=== PATIENT | female | born 1970 | race African-American/Black ===

== ENCOUNTER 2016-09-16 19:11 | Emergency (ER) | payer OTHER ==
[2016-09-16 19:16] VITALS: BP 121/80; PULSE 84; TEMP 98.8; BMI 26.6
--- NOTE | 2016-09-16 19:48 | PDOC ---
History of Present Illness - General Chief Complaint: Wound Infection Stated Complaint: Allergic Reaction History Source: Patient Exam Limitations: No Limitations - History of Present Illness Initial Comments: 09/16/16 19:33 CHIEF COMPLAINT: HISTORY OF PRESENT ILLNESS: 45-year-old female, significant medical history currently on no medication patient reports a week ago she started with a red lesion to right lateral lower torso, over the next several days it started to become red, painful and warm. No significant medical history. REVIEW OF SYSTEMS: GENERAL: Afebrile, denies any weakness RESPIRATORY: No cough, wheezing, or hemoptysis. CARDIAC: No chest pain or shortness of breath MUSCULOSKELETAL: Pain to right lateral lower back pain. No point tenderness. SKIN :Erythematous painful well defined area to the right lateral lower torso. GI/: Denies any abdominal pain, no urinary difficulty, incontinence or urinary retention. NEUROLOGICAL: Denies any numbness or tingling. No neurosensory deficits to PHYSICAL EXAM: GENERAL: The patient is awake, alert, and fully oriented, in no acute distress. RESPIRATORY: Lungs clear bilaterally, no rhonchi wheezes or crackles CARDIAC: S1-S2 audible, no murmur rub or gallop MUSCULOSKELETAL: Pain to right lateral lower back, nonradiating, no tingling or sensory deficit. Less than 2 second cap refill, +4 popliteal and pedal pulses. GI/: Abdomen soft, nontender, nondistended. No rebound tenderness. No masses palpable. MUSCULOSKELETAL: No spinal point tenderness. Normal reflexive and no deficits to sensation or strength. SKIN: Warm, erythematous, well-defined painful areas to right lateral lower torso. Past History - Past Medical History Allergies/Adverse Reactions: Allergies Allergy/AdvReac Type Severity Reaction Status Date / Time No Known Allergies Allergy Verified 02/17/16 10:25 Home Medications: Ambulatory Orders Sulfamethoxazole/Trimethoprim [Bactrim DS -] 1 tab PO BID #20 tablet 09/16/16 - Surgical History Cholecystectomy: Yes - Immunization History Immunization Up to Date: Yes - Psycho/Social/Smoking Cessation Hx Anxiety: No Suicidal Ideation: No Smoking History: Never smoked Have you smoked in the past 12 months: No Number of Cigarettes Smoked Daily: 0 Cigars Per Day: 0 Hx Alcohol Use: No Drug/Substance Use Hx: No Substance Use Type: Alcohol *Physical Exam - Vital Signs Last Vital Signs Temp Pulse Resp BP Pulse Ox 98.8 F 84 18 121/80 98 09/16/16 19:15 09/16/16 19:15 09/16/16 19:15 09/16/16 19:15 09/16/16 19:15 Medical Decision Making - Medical Decision Making 09/16/16 20:05 A/P: Patient with painful, well-defined, oval, mildly indurated area to right lateral lower torso. Area with no fluctuance or defined central collection. Area is cellulitic, will start patient on Bactrim follow-up in 2 days for evaluation possible I&D I discussed the physical exam findings, ancillary test results and final diagnoses with the patient. I answered all of the patient's questions. The patient was satisfied with the care received and felt comfortable with the discharge plan and treatment plan. The patient will call to arrange follow-up and will return to the Emergency Department with any new, persistent or worsening symptoms. *DC/Admit/Observation/Transfer Diagnosis at time of Disposition: Abscess Cellulitis Qualifiers: Site of cellulitis: other site Qualified Code(s): L03.818 - Cellulitis of other sites - Discharge Dispostion Disposition: HOME Condition at time of disposition: Good Admit: No - Prescriptions Prescriptions: Sulfamethoxazole/Trimethoprim [Bactrim Ds -] 1 tab PO BID #20 tablet - Referrals Referrals: Alicja Grant MD [Primary Care Provider] - - Patient Instructions Additional Instructions: Warm soaks to area Antibiotics as ordered Please return for evaluation in 2 days if area is not improving If any increased redness swelling, drainage, or any other concerns return to ER
== END 2016-09-16 20:25 | disposition home or self-care (01) ==
LOC: JERFT 19:11 → JER 19:11 → JERFT 20:25
DX: L03.818 Cellulitis of other sites (principal)
CPT/HCPCS: 99281-25

== ENCOUNTER 2016-09-18 13:22 | Emergency (ER) | payer OTHER ==
[2016-09-18 13:31] VITALS: TEMP 98.3; BMI 31.4
--- NOTE | 2016-09-18 15:23 | PDOC ---
History of Present Illness - General History Source: Patient Exam Limitations: No Limitations - History of Present Illness Initial Comments: 09/18/16 15:59 The patient is a 45 year old female, with no significant past medical history, who presents to the emergency department with R flank wound infection. Patient was seen on 09/16/2016 for the same complaints and was discharged home with Bactrim. Patient notes the area has progressively worsened with surrounding erythema and purulent drainage. Patient presents to the ED for further evaluation. She denies chest pain, headache or dizziness. She denies fever, chills, abdominal pain, nausea,, vomit, diarrhea or constipation. She denies dysuria, frequency, urgency or hematuria. Allergies: NKA Past surgical history: None Social history: None PCP: Dr. Grant <Meghna Steele - Last Filed: 09/18/16 15:58> <Keyonna Shoemaker - Last Filed: 09/22/16 16:16> - General Chief Complaint: Wound Infection Stated Complaint: Revisit, wound infection Time Seen by Provider: 09/18/16 14:56 Past History <Meghna Steele - Last Filed: 09/18/16 15:58> - Surgical History Cholecystectomy: Yes - Immunization History Immunization Up to Date: Yes - Psycho/Social/Smoking Cessation Hx Anxiety: No Suicidal Ideation: No Smoking History: Never smoked Have you smoked in the past 12 months: No Number of Cigarettes Smoked Daily: 0 Cigars Per Day: 0 Information on smoking cessation initiated: No Hx Alcohol Use: No Drug/Substance Use Hx: No Substance Use Type: None <Keyonna Shoemaker - Last Filed: 09/22/16 16:16> - Past Medical History Allergies/Adverse Reactions: Allergies Allergy/AdvReac Type Severity Reaction Status Date / Time No Known Allergies Allergy Verified 09/18/16 13:31 Home Medications: Ambulatory Orders Sulfamethoxazole/Trimethoprim [Bactrim DS -] 1 tab PO BID #20 tablet 09/16/16 Cephalexin Monohydrate [Keflex -] 500 mg PO Q6H #40 capsule 09/18/16 Review of Systems - Review of Systems Able to Perform ROS?: Yes Comments:: 09/18/16 15:59 GENERAL/CONSTITUTIONAL: No fever or chills. No weakness. HEAD, EYES, EARS, NOSE AND THROAT: No change in vision. No ear pain or discharge. No sore throat. GASTROINTESTINAL: No nausea, vomiting, diarrhea or constipation. GENITOURINARY: No dysuria, frequency, or change in urination. CARDIOVASCULAR: No chest pain or shortness of breath. RESPIRATORY: No cough, wheezing, or hemoptysis. MUSCULOSKELETAL: No joint or muscle swelling or pain. No neck or back pain. SKIN: + R flank abscess. No rash NEUROLOGIC: No headache, vertigo, loss of consciousness, or change in strength/ sensation. ENDOCRINE: No increased thirst. No abnormal weight change. HEMATOLOGIC/LYMPHATIC: No anemia, easy bleeding, or history of blood clots. ALLERGIC/IMMUNOLOGIC: No hives or skin allergy. <CedricMeghna - Last Filed: 09/18/16 15:58> *Physical Exam - Vital Signs Last Vital Signs Temp Pulse Resp BP Pulse Ox 98.3 F 77 18 118/59 99 09/18/16 13:29 09/18/16 13:29 09/18/16 13:29 09/18/16 13:29 09/18/16 13:29 <Meghna Steele - Last Filed: 09/18/16 15:58> - Vital Signs Last Vital Signs Temp Pulse Resp BP Pulse Ox 98.3 F 77 18 118/59 99 09/18/16 13:29 09/18/16 13:29 09/18/16 13:29 09/18/16 13:29 09/18/16 13:29 - Physical Exam Comments: GENERAL: Awake, alert, and fully oriented, in no acute distress HEAD: No signs of trauma EYES: PERRLA, EOMI, sclera anicteric, conjunctiva clear ENT: Auricles normal inspection, hearing grossly normal, nares patent, oropharynx clear without exudates. Moist mucosa NECK: Normal ROM, supple, no lymphadenopathy, JVD, or masses LUNGS: Breath sounds equal, clear to auscultation bilaterally. No wheezes, and no crackles HEART: Regular rate and rhythm, normal S1 and S2, no murmurs, rubs or gallops ABDOMEN: Soft, nontender, normoactive bowel sounds. No guarding, no rebound. No masses EXTREMITIES: Normal range of motion, no edema. No clubbing or cyanosis. No cords, erythema, or tenderness NEUROLOGICAL: Cranial nerves II through XII grossly intact. Normal speech, normal gait SKIN: Warm, Dry, normal turgor, no rashes. R side with ~5cm diameter erythematous, indurated lesion with fluctuant raised area in the center. <Keyonna Shoemaker - Last Filed: 09/22/16 16:16> Procedures - Incision and Drainage I&D Site: Right: Abdomen Anesthesia: 1% Lidocaine Volume(ml): 2 Blade Size: 11 Attempts: 1 Complications: none Dressing: Yes Progress: Area was prepped with alcohol prior to anesthetizing with lidocaine. The most fluctuant portion was incised with #11 blade, at which time it expressed moderate amount of purulent material. Loculations were broken and bently pressed to express remaining material. Patient tolerated well. Sterile dressing placed. Wound culture obtained and sent. <Keyonna Shoemaker - Last Filed: 09/22/16 16:16> *DC/Admit/Observation/Transfer - Attestations Scribe Attestion: 09/18/16 15:59 Documentation prepared by Meghna Steele, acting as medical billing and coding specialist for Keyonna Shoemaker MD <Meghna Steele - Last Filed: 09/18/16 15:58> - Discharge Dispostion Admit: No <Keyonna Shoemaker - Last Filed: 09/22/16 16:16> Diagnosis at time of Disposition: Abscess, Cellulitis - Discharge Dispostion Disposition: HOME Condition at time of disposition: Stable - Prescriptions Prescriptions: Cephalexin Monohydrate [Keflex -] 500 mg PO Q6H #40 capsule - Referrals Referrals: Alicja Grant MD [Primary Care Provider] - - Patient Instructions Printed Discharge Instructions: DI for Incision and Drainage of a Skin Abscess Additional Instructions: WARM SALT WATER SOAKS TWICE A DAY FOR 4-5 DAYS.
[2016-09-18 16:16] VITALS: BP 121/69; PULSE 88
== END 2016-09-18 16:17 | disposition home or self-care (01) ==
LOC: JER 13:22
DX: L02.211 Cutaneous abscess of abdominal wall (principal); L03.311 Cellulitis of abdominal wall
CPT/HCPCS: 87070; 87076; 87077; 87205; 99281-25

== ENCOUNTER 2017-09-10 11:31 | Emergency (ER) | payer SELFPAY ==
[2017-09-10 11:44] VITALS: BP 108/79; PULSE 72; TEMP 98.3; BMI 32.3
[2017-09-10] MEDS ORDERED: METOCLOPRAMIDE HCL INJECTION 10 MG/2 ML VIAL IVPB ONE (12:00)
[2017-09-10] MEDS ORDERED: SODIUM CHLORIDE 1,000 ML IV STA (12:01)
[2017-09-10] MEDS ORDERED: KETOROLAC TROMETHAMINE 15 MG/ML VIAL IVPUSH ONE (12:16)
[2017-09-10] MEDS ORDERED: METOCLOPRAMIDE HCL INJECTION 10 MG/2 ML VIAL ONE (12:20)
[2017-09-10] MEDS ORDERED: KETOROLAC TROMETHAMINE 15 MG/ML VIAL ONE (12:20)
--- NOTE | 2017-09-10 13:05 | PDOC ---
History of Present Illness - General Chief Complaint: Headache Stated Complaint: MIGRAINE HEADACHE Time Seen by Provider: 09/10/17 11:45 History Source: Patient Exam Limitations: No Limitations - History of Present Illness Initial Comments: 09/10/17 12:59 46 yr female with migraine headache for 4 days no relieved with OTC advil. Pt has history of migraines about 6 times a year. Pt states this is typical migraine with photophobia, no nausea , neg fever or neck pain. Past History - Past Medical History Allergies/Adverse Reactions: Allergies Allergy/AdvReac Type Severity Reaction Status Date / Time No Known Allergies Allergy Verified 09/10/17 11:40 Home Medications: Ambulatory Orders Naproxen [Naprosyn -] 500 mg PO BID PRN #14 tablet 09/10/17 COPD: No Other medical history: DENIES. - Surgical History Cholecystectomy: Yes - Immunization History Immunization Up to Date: Yes - Suicide/Smoking/Psychosocial Hx Smoking History: Never smoked Have you smoked in the past 12 months: No Number of Cigarettes Smoked Daily: 0 Cigars Per Day: 0 Hx Alcohol Use: No Drug/Substance Use Hx: No Substance Use Type: None Neuro Specific PMHX - Complaint Specific PMHX Glaucoma: No Herniated Disk: No Laminectomy: No Migraine: Yes Review of Systems - Review of Systems Able to Perform ROS?: Yes Is the patient limited Libyan proficient: No Constitutional: No: Symptoms Reported HEENTM: No: Symptoms Reported Respiratory: No: Symptoms reported Cardiac (ROS): No: Symptoms Reported ABD/GI: No: Symptoms Reported : No: Symptoms Reported Musculoskeletal: No: Symptoms Reported Integumentary: No: Symptoms Reported Neurological: Yes: Symptoms reported, Headache *Physical Exam - Vital Signs Last Vital Signs Temp Pulse Resp BP Pulse Ox 98.3 F 72 19 108/79 99 09/10/17 11:40 09/10/17 11:40 09/10/17 11:40 09/10/17 11:40 09/10/17 11:40 - Physical Exam General Appearance: Yes: Nourished, Appropriately Dressed HEENT: positive: EOMI, YOEL, TMs Normal, Pharynx Normal Neck: positive: Supple Respiratory/Chest: positive: Lungs Clear, Normal Breath Sounds Cardiovascular: positive: Regular Rhythm, Regular Rate Extremity: positive: Normal Capillary Refill, Normal Inspection Integumentary: positive: Normal Color, Dry, Warm Neurologic: 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 negative: Confused ED Treatment Course - ADDITIONAL ORDERS Additional order review: Laboratory Results 09/10/17 11:44 Urine HCG, Qual Negative - Medications Given in the ED: ED Medications Discontinued Medications Generic Name Dose Route Start Last Admin Trade Name Sukhdeep PRN Reason Stop Dose Admin Diphenhydramine HCl 25 mg 09/10/17 12:00 09/10/17 12:32 Benadryl Injection - IVPB 09/10/17 12:01 25 mg ONCE ONE Administration Ketorolac Tromethamine 15 mg 09/10/17 12:16 09/10/17 12:32 Toradol Injection - IVPUSH 09/10/17 12:17 15 mg ONCE ONE Administration Medical Decision Making - Medical Decision Making 09/10/17 13:02 cc: migraine will give IV benadryl, reglan, toradol, IVF and re-eval neg 09/10/17 14:22 pt feels much better headache has resolved pt is ambulatory steady gait understands the dc plan all questions asked and answered *DC/Admit/Observation/Transfer Diagnosis at time of Disposition: Migraine Qualifiers: Migraine type: unspecified Status migrainosus presence: with status migrainosus Intractability: not intractable Qualified Code(s): G43.901 - Migraine, unspecified, not intractable, with status migrainosus - Discharge Dispostion Disposition: HOME Condition at time of disposition: Improved - Prescriptions Prescriptions: Naproxen [Naprosyn -] 500 mg PO BID PRN #14 tablet PRN Reason: Headache - Referrals Referrals: Alicja Grant MD [Primary Care Provider] - Juliano Feliz MD [Staff Physician] - - Patient Instructions Printed Discharge Instructions: DI for Migraine Additional Instructions: drink at least 2 liters of water a day take naprosyn as directed for migraine follow with the neurologist for follow up avoid bright light loud places, avoid reading or texting return if any worsening symptoms - Post Discharge Activity
== END 2017-09-10 13:49 | disposition home or self-care (01) ==
LOC: JERFT 11:31
PROC: 3E0337Z Introduction of Electrolytic and Water Balance Substance into Peripheral Vein, Percutaneous Approach (ICD-10-PCS; principal; 2017-09-10)
PROC: 3E033GC Introduction of Other Therapeutic Substance into Peripheral Vein, Percutaneous Approach (ICD-10-PCS; 2017-09-10)
PROC: 3E033GC Introduction of Other Therapeutic Substance into Peripheral Vein, Percutaneous Approach (ICD-10-PCS; 2017-09-10)
PROC: 3E0333Z Introduction of Anti-inflammatory into Peripheral Vein, Percutaneous Approach (ICD-10-PCS; 2017-09-10)
DX: G43.901 Migraine, unspecified, not intractable, with status migrainosus (principal)
CPT/HCPCS: 84703; 99281-25; J7030

== ENCOUNTER 2017-11-25 10:23 | Emergency (ER) | payer BC ==
[2017-11-25 10:34] VITALS: BP 124/69; PULSE 72; TEMP 97.5; BMI 31.4
[2017-11-25] MEDS ORDERED: KETOROLAC TROMETHAMINE 60 MG/2 ML VIAL IM ONE (11:03)
[2017-11-25] MEDS ORDERED: KETOROLAC TROMETHAMINE 60 MG/2 ML VIAL ONE (11:06)
--- NOTE | 2017-11-25 11:14 | PDOC ---
History of Present Illness - General Chief Complaint: Back Pain Stated Complaint: LEG PAIN Time Seen by Provider: 11/25/17 11:03 History Source: Patient Exam Limitations: No Limitations - History of Present Illness Initial Comments: 11/25/17 14:00 46 yr female history of occasional low back pain presents after doing heavy lifting and bending at work , low back pain radiates to buttock and left thigh. no numbness or tingling. Pt taking aleve, ibuprofen with no relief at home. pt ambulating freely no urinary or bowel complaints. 11/25/17 14:01 Past History - Past Medical History Allergies/Adverse Reactions: Allergies Allergy/AdvReac Type Severity Reaction Status Date / Time No Known Allergies Allergy Verified 11/25/17 10:31 Home Medications: Ambulatory Orders Methylprednisolone [Medrol Dose Dima] 4 mg PO ASDIR #21 tablet 11/25/17 COPD: No DVT: No - Surgical History Cholecystectomy: Yes - Immunization History Immunization Up to Date: Yes - Suicide/Smoking/Psychosocial Hx Smoking History: Never smoked Have you smoked in the past 12 months: No Number of Cigarettes Smoked Daily: 0 Cigars Per Day: 0 Information on smoking cessation initiated: No Hx Alcohol Use: No Drug/Substance Use Hx: No Substance Use Type: None Trauma Specific PMHX - Complaint Specific PMHX Arthritis: No Back Injury: No Neck Injury: No Hx Sacro Iliac Joint Dysfunction: No *Physical Exam - Vital Signs Last Vital Signs Temp Pulse Resp BP Pulse Ox 97.5 F L 72 18 124/69 100 11/25/17 10:31 11/25/17 10:31 11/25/17 10:31 11/25/17 10:31 11/25/17 10:31 - Physical Exam General Appearance: Yes: Nourished, Appropriately Dressed HEENT: positive: EOMI, YOEL, Normal ENT Inspection Respiratory/Chest: positive: Lungs Clear, Normal Breath Sounds Cardiovascular: positive: Regular Rhythm, Regular Rate Gastrointestinal/Abdominal: positive: Normal Bowel Sounds, Soft. negative: Tender Lymphatic: negative: Adenopathy Musculoskeletal: positive: Normal Inspection. 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, Fully Oriented, Alert, Normal Mood/ Affect, Normal Response, Motor Strength 5/5, Finger to Nose (intact pos SLR left leg at 90 degrees) Medical Decision Making - Medical Decision Making 11/25/17 14:02 cc: low back pain radiates to left buttock to lateral thigh no saddle anesthesia no urine or bowel incontinence ambulating freely will give toradol now dc with medrol dose pack follow up with neurosurgeon *DC/Admit/Observation/Transfer Diagnosis at time of Disposition: Sciatica Qualifiers: Laterality: left Qualified Code(s): M54.32 - Sciatica, left side - Discharge Dispostion Disposition: HOME Condition at time of disposition: Good - Prescriptions Prescriptions: Methylprednisolone [Medrol Dose Dima] 4 mg PO ASDIR #21 tablet - Referrals Referrals: Mitchel Espinosa MD [Staff Physician] - - Patient Instructions Printed Discharge Instructions: DI for Back Pain With Sciatica Additional Instructions: drink pleanty of water to stay hydrated start the medrol dose pack today (steroid) apply warm heating pad to lower back every few hours for 30 minutes apply a topical anesthetic such as Icy Hot or Apsercream to low back and buttock area follow with the neurosurgeon BACK doctor return if any worsening symptoms - Post Discharge Activity Forms/Work/School Notes: Back to Work
== END 2017-11-25 11:38 | disposition home or self-care (01) ==
LOC: JERFT 10:23
PROC: 3E0233Z Introduction of Anti-inflammatory into Muscle, Percutaneous Approach (ICD-10-PCS; principal; 2017-11-25)
DX: M54.42 Lumbago with sciatica, left side (principal); X50.0XXA Overexertion from strenuous movement or load, initial encounter; Y93.F9 Activity, other caregiving; Y92.238 Other place in hospital as the place of occurrence of the external cause; Y99.0 Civilian activity done for income or pay
CPT/HCPCS: 99281-25

== ENCOUNTER 2018-12-22 12:40 | Emergency (ER) | payer BC ==
--- NOTE | 2018-12-22 12:46 | PDOC ---
Rapid Medical Evaluation Time Seen by Provider: 12/22/18 12:44 Medical Evaluation: Allergies Allergy/AdvReac Type Severity Reaction Status Date / Time No Known Allergies Allergy Verified 11/25/17 10:31 12/22/18 12:45 CC: Flu like symptoms x3 days PE: OP erythematous without lesions or exudate. Orders: nothing Patient will proceed to ED for further evaluation. Discharge Disposition - Diagnosis URI (upper respiratory infection) - Referrals - Patient Instructions - Post Discharge Activity
[2018-12-22 12:47] VITALS: BP 124/75; PULSE 76; TEMP 98; BMI 33.9
--- NOTE | 2018-12-22 13:28 | PDOC ---
History of Present Illness - General Chief Complaint: Cold Symptoms Stated Complaint: COLD SYMPTOMS Time Seen by Provider: 12/22/18 12:44 History Source: Patient Exam Limitations: No Limitations - History of Present Illness Initial Comments: 12/22/18 14:25 Chief complaint: Body aches and congestion Patient is a healthy 48-year-old female with 3 days of body aches, fever, runny nose, cough and sneezing patient has been taking TheraFlu. Patient states T- max was 101. Patient had flu shot beginning of November. Patient has no fever today and did not take any medication. Patient has been drinking fluids GENERAL/CONSTITUTIONAL: No fever, weakness. dizziness HEAD, EYES, EARS, NOSE AND THROAT: No change in vision. No ear pain or discharge. No sore throat. CARDIOVASCULAR: No chest pain RESPIRATORY: No shortness of breath or cough GASTROINTESTINAL: No pain, nausea, vomiting, diarrhea or constipation GENITOURINARY: No dysuria MUSCULOSKELETAL: No neck or back pain SKIN: No rash NEUROLOGIC: No headache, vertigo, loss of consciousness, or loss of sensation. GENERAL: The patient is awake, alert, and fully oriented, in no acute distress. Patient does not appear acutely ill HEAD: Normal with no signs of trauma. EYES: Pupils equal, round and reactive to light, sclera anicteric, conjunctiva clear. ENT: pharynx: no erythema, no exudate, uvula midline NECK: supple CHEST: clear, nontender, rr ABD: soft, nontender BACK: no tenderness or signs of injury EXTREMITIES: Normal range of motion, no edema. NEUROLOGICAL: Normal speech, normal gait. SKIN: Warm, Dry Past History - Past Medical History Allergies/Adverse Reactions: Allergies Allergy/AdvReac Type Severity Reaction Status Date / Time No Known Allergies Allergy Verified 12/22/18 12:45 Home Medications: Ambulatory Orders Methylprednisolone [Medrol Dose Dima] 4 mg PO ASDIR #21 tablet 11/25/17 COPD: No DVT: No - Surgical History Cholecystectomy: Yes - Immunization History Immunization Up to Date: Yes - Psycho Social/Smoking Cessation Hx Smoking History: Never smoked Have you smoked in the past 12 months: No Number of Cigarettes Smoked Daily: 0 Cigars Per Day: 0 Hx Alcohol Use: No Drug/Substance Use Hx: No Substance Use Type: None *Physical Exam - Vital Signs Last Vital Signs Temp Pulse Resp BP Pulse Ox 98 F 76 18 124/75 99 12/22/18 12:45 12/22/18 12:45 12/22/18 12:45 12/22/18 12:45 12/22/18 12:45 Medical Decision Making - Medical Decision Making 12/22/18 14:26 48-year-old female with 3 days of URI symptoms, had fever, fever is gone today. There is no respiratory distress, no wheezing, no other concerning clinical findings. Patient does not need further evaluation. Patient will continue with supportive care as given and discharge instructions. Patient is comfortable with plan. Discussed issues, findings, results, applicable medications and treatments and follow-up. All these were understood and all questions were answered Discharge - Discharge Information Problems reviewed: Yes Clinical Impression/Diagnosis: URI (upper respiratory infection) Qualifiers: URI type: unspecified URI Qualified Code(s): J06.9 - Acute upper respiratory infection, unspecified Condition: Stable Disposition: HOME - Admission No - Additional Discharge Information Prescription Drug Monitoring Program (I-STOP) results: I-STOP not reviewed - Follow up/Referral Referrals: Alicja Grant MD [Primary Care Provider] - - Patient Discharge Instructions Patient Printed Discharge Instructions: DI for Viral Upper Respiratory Infection -- Adult Additional Instructions: Drink 2-3 L of water daily Take Tylenol 650 mg every 4 hours or Motrin 600 mg every 6 hours for fever and pain Return to the nearest ER if short of breath, unable to swallow or feeling sicker Followup with your doctor in one to 2 days - Post Discharge Activity Work/Back to School Note: Back to Work
== END 2018-12-22 13:33 | disposition home or self-care (01) ==
LOC: JERFT 12:40
DX: J06.9 Acute upper respiratory infection, unspecified (principal); Z90.49 Acquired absence of other specified parts of digestive tract
CPT/HCPCS: 99281-25

== ENCOUNTER 2022-05-14 09:32 | Emergency (ER) | payer BC, OTHER ==
[2022-05-14 09:38] VITALS: BMI 35.5
[2022-05-14] MEDS ORDERED: ONDANSETRON 4 MG/2 ML VIAL IVPB ONE (10:53)
[2022-05-14] MEDS ORDERED: ONDANSETRON 4 MG/2 ML VIAL ONE (10:58)
[2022-05-14] MEDS ORDERED: ACETAMINOPHEN 1000 MG/100 ML BAG IVPB ONE (11:14)
[2022-05-14] MEDS ORDERED: ACETAMINOPHEN INJECTION 100 ML IVPB ONE (11:15)
[2022-05-14 12:33] LABS: BASO % 0.7 % (0-2.0); EOS % 0.8 % (0-4.5); HEMATOCRIT 37.6 % (32.4-45.2); HEMOGLOBIN 12.1 GM/dL (10.7-15.3); LYMPH % 31.4 % (8-40); MCH 25.4 pg (25.7-33.7); MCHC 32.1 g/dl (32.0-36.0); MEAN CELL VOLUME 79.2 fl (80-96); MEAN PLT VOLUME 9.8 fl (7.5-11.1); NEUT % 61.1 % (42.8-82.8); PLATELET COUNT 248 10^3/uL (134-434); RBC 4.75 M/mm3 (3.60-5.2); RDW 15.4 % (11.6-15.6); WHITE BLOOD COUNT 8.1 K/mm3 (4.0-10.0)
[2022-05-14 12:36] LABS: PH,URINE 5.5 (5.0-8.0); URINE APPEARANCE CLEAR; URINE BILIRUBIN NEGATIVE (NEGATIVE); URINE COLOR YELLOW; URINE GLUCOSE (UA) NEGATIVE (NEGATIVE); URINE KETONE 1+ (NEGATIVE); URINE LEUK ESTERASE NEGATIVE (NEGATIVE); URINE NITRITE NEGATIVE (NEGATIVE); URINE PROTEIN NEGATIVE (NEGATIVE); URINE UROBILINOGEN 0.2 mg/dL (0.2-1.0)
[2022-05-14 12:39] LABS: HCG,QUALITATIVE URINE Negative
[2022-05-14 12:43] LABS: INR 1.18 (0.83-1.09); PROTHROMBIN TIME (PATIENT) 13.7 SEC (9.7-13.0)
[2022-05-14 12:45] LABS: ACTIVATED PTT 31.4 SECONDS (25.2-36.5)
[2022-05-14 12:56] LABS: BLOOD UREA NITROGEN 14.9 mg/dL (7-18); CALCIUM 9.1 mg/dL (8.5-10.1)
[2022-05-14 12:57] LABS: ALBUMIN 4.1 g/dl (3.4-5.0)
[2022-05-14 13:00] LABS: CREATININE 0.8 mg/dL (0.55-1.3); PHOSPHOROUS 3.6 mg/dL (2.5-4.9)
[2022-05-14 13:01] LABS: BILIRUBIN,TOTAL 0.4 mg/dL (0.2-1); TOT PROT 8.6 g/dl (6.4-8.2)
[2022-05-14 16:03] VITALS: BP 119/78; PULSE 76; RESP 17; TEMP 98.5
== END 2022-05-14 16:05 | disposition home or self-care (01) ==
LOC: JER 09:32
PROC: 3E033GC Introduction of Other Therapeutic Substance into Peripheral Vein, Percutaneous Approach (ICD-10-PCS; principal; 2022-05-14)
DX: K52.9 Noninfective gastroenteritis and colitis, unspecified (principal)
CPT/HCPCS: 0241U-QW; 36415; 74177-TC; 80053; 81003; 83690; 83735; 84100; 84484; 84703; 85025; 85610; 85730; 87086; 93005; 93010; 99285-25; Q9967